=== PATIENT | female | born 1990 | race Caucasian/White ===

== ENCOUNTER → 2016-07-14 | Outpatient (CLI) | payer OTHER ==
[2016-07-14 10:24] LABS: microscopic required? NO
[2016-07-14 10:31] LABS: urine erythrocyte NEGATIVE (NEGATIVE)
[2016-07-14 10:41] LABS: BASOPHIL % 0.5 % (0-2); PLATELET COUNT 361 x10^3mcL (130-400); RED CELL DISTRIBUTION WIDTH 12.2 % (11.5-14.5)
[2016-07-15 08:20] LABS: RAPID PLASMA REAGIN Non Reactive (Non Reactive)
== END | disposition home or self-care (01) ==
LOC: LB 09:16
DX: Z34.00 Encounter for supervision of normal first pregnancy, unspecified trimester (principal); Z11.3 Encounter for screening for infections with a predominantly sexual mode of transmission; N30.00 Acute cystitis without hematuria
CPT/HCPCS: 87491; 87591

== ENCOUNTER → 2016-12-11 | Outpatient (CLI) | payer OTHER ==
[2016-12-11 10:07] LABS: BASOPHIL % 0.6 % (0-2); PLATELET COUNT 316 x10^3mcL (130-400); RED CELL DISTRIBUTION WIDTH 13.4 % (11.5-14.5)
[2016-12-11 10:21] LABS: GLUCOSE FASTING 78 mg/dL (70-110)
== END | disposition home or self-care (01) ==
LOC: LB 09:25
DX: Z34.90 Encounter for supervision of normal pregnancy, unspecified, unspecified trimester (principal)